=== PATIENT | female | born 2000 | race Hispanic/Latino ===

== ENCOUNTER 2022-03-27 07:58 | Emergency (ER) | payer SELFPAY ==
[~2022-03-27] VITALS: Ht 152.4 cm; Wt 107.7 kg
[2022-03-27] MEDS ORDERED: CIPRODEX OTIC7.5 ML OT (08:20)
[2022-03-27] MEDS ORDERED: AUGMENTIN 500-1 EACH PO (08:20)
[2022-03-27] MEDS ORDERED: IBUPROFEN600 MG PO (08:20)
== END 2022-03-27 08:27 | disposition home or self-care (01) ==
LOC: FSED 08:04
DX: A49.9 Bacterial infection, unspecified (principal); H92.03 Otalgia, bilateral
CPT/HCPCS: 99282

== ENCOUNTER 2023-01-08 19:13 | Emergency (ER) | payer SELFPAY ==
[~2023-01-08] VITALS: Ht 162.6 cm; Wt 110.2 kg
[~2023-01-08 19:13] MED LIST: AUGMENTIN 500-1 EACH PO; CIPRODEX OTIC7.5 ML OT; IBUPROFEN600 MG PO
[2023-01-08] MEDS ORDERED: DIPHTH/TETANUS/ACEL. PERTUSSIS 0.5 ML SYR IM ONE (20:00)
[2023-01-08] MEDS ORDERED: AMOXICILLIN/CLAVULANATE K 500 MG TAB PO ONE (20:00)
[2023-01-08] MEDS ORDERED: ACETAMINOPHEN/CODEINE 300MG - 30MG TAB PO ONE (20:30)
[2023-01-08] MEDS ORDERED: LIDOCAINE HCL 1% LOCAL INJ 20 ML VIAL INJ ONE (20:45)
[2023-01-08] MEDS ORDERED: LIDOCAINE 1% 10 ML MULTIDOSE VIAL IJ ONE (20:48)
[2023-01-08] MEDS ORDERED: ACETAMINOPHEN/CODEINE ELIX 120-12 MG/5 ML UDC ONE (21:06)
[2023-01-08] MEDS ORDERED: ACETAMINOPHEN 325 MG/10 ML UDC NG ONE (21:15)
[2023-01-08] MEDS ORDERED: AUGMENTIN 500-1 EACH PO (21:23)
[2023-01-08] MEDS ORDERED: DOXYCYCLINE HY100 MG PO (21:24)
[2023-01-08] MEDS ORDERED: AMOXICILLIN/CLAVULANATE K 875 MG TAB ONE (21:26)
[2023-01-08] MEDS ORDERED: TETANUS/DIPHTHERIA TOX ADULT 0.5 ML SYR ONE (21:27)
[2023-01-08] MEDS ORDERED: BACITRACIN ZINC 0.9GM TP ONE (21:30)
[2023-01-08 21:38] VITALS: BP 136/82
== END 2023-01-08 21:38 | disposition home or self-care (01) ==
LOC: FSED 19:23
DX: R21 Rash and other nonspecific skin eruption (principal); L03.116 Cellulitis of left lower limb
CPT/HCPCS: 87070; 87205; 90471; 90714; 99283